=== PATIENT | female | born 1960 | race African-American/Black ===

== ENCOUNTER 2017-09-18 01:46 | Emergency (ER) | payer MEDICAID, OTHER ==
[~2017-09-18] VITALS: Ht 162.6 cm; Wt 107.5 kg
[2017-09-18] MEDS ORDERED: MORPHINE SULFATE 10 MG/ML CPJ IV ONE ×2 (07:00→11:00)
[2017-09-18] MEDS ORDERED: TETANUS, DIPHTHERIA, PERTUSSIS VAC/PF 0.5ML (>7YR OLD) IM ONE (07:00)
[2017-09-18] MEDS ORDERED: CEFAZOLIN 1000MG PREMIX 50 ML IV ONE (08:00)
[2017-09-18 12:30] VITALS: BP 144/79
== END 2017-09-18 13:01 ==
LOC: ER 01:46
DX: S62.633B Displaced fracture of distal phalanx of left middle finger, initial encounter for open fracture (principal); J45.909 Unspecified asthma, uncomplicated; W45.8XXA Other foreign body or object entering through skin, initial encounter; Y93.89 Activity, other specified; Y92.89 Other specified places as the place of occurrence of the external cause; Y99.8 Other external cause status
CPT/HCPCS: 73140; 90471; 90715; 96365; 96375; 96376; 99285; J2270